=== PATIENT | male | born 1965 | race African-American/Black ===

== ENCOUNTER 2021-12-05 14:27 | Emergency (ER) | payer MEDICARE, MEDICAID ==
[~2021-12-05] VITALS: Ht 182.9 cm; Wt 102.0 kg
[~2021-12-05 14:27] MED LIST: AMLO10TA80 PO; CIPR500T5 PO; DICL75TA5 PO; GABA-532 PO; HYDR-523 PO
[2021-12-05] MEDS ORDERED: IBUPROFEN 600MG TABLET PO ONE (15:00)
[2021-12-05] MEDS ORDERED: HYDROCODONE/ACETAMINOPHEN 5/325MG TABLET PO ONE (15:00)
[2021-12-05] MEDS ORDERED: CYCL10TA7 MT (16:07)
[2021-12-05] MEDS ORDERED: IBUP-2029 MT (16:07)
[2021-12-05 17:47] VITALS: BP 142/72
== END 2021-12-05 17:50 | disposition home or self-care (01) ==
LOC: ER 14:40
DX: S09.8XXA Other specified injuries of head, initial encounter (principal); S13.9XXA Sprain of joints and ligaments of unspecified parts of neck, initial encounter; I10 Essential (primary) hypertension; Z98.890 Other specified postprocedural states; Z88.0 Allergy status to penicillin; Z88.2 Allergy status to sulfonamides; W17.89XA Other fall from one level to another, initial encounter; Y93.B1 Activity, exercise machines primarily for muscle strengthening; Y92.018 Other place in single-family (private) house as the place of occurrence of the external cause
CPT/HCPCS: 99284

== ENCOUNTER 2023-08-13 11:39 | Emergency (ER) | payer MEDICAID, MEDICARE ==
[~2023-08-13] VITALS: Ht 177.8 cm; Wt 94.0 kg
[~2023-08-13 11:39] MED LIST changes: +CYCL10TA21 MT; +IBUP-2029 MT
[2023-08-13 11:46] VITALS: BP 107/76; PULSE 109; TEMP 98.7; O2SAT 99
[2023-08-13] MEDS ORDERED: LIDOCAINE HCL/PF 1% 10 MG/ML 5ML VIAL INFIL ONE (13:15)
[2023-08-13] MEDS ORDERED: BACITRACIN ZINC OINT UDPKT TOP ONE (13:15)
[2023-08-13] MEDS ORDERED: TETANUS, DIPHTHERIA, PERTUSSIS VAC/PF 0.5ML (>10YR OLD) IM ONE ×2 (13:15→15:00)
[2023-08-13] MEDS ORDERED: BACITRACIN ZINC OINT UDPKT TOP NR (14:55)
[2023-08-13] MEDS ORDERED: LIDOCAINE HCL/PF 1% 10 MG/ML 5ML VIAL INFIL NR (14:56)
== END 2023-08-13 16:54 | disposition home or self-care (01) ==
LOC: ER 11:39
DX: S61.411A Laceration without foreign body of right hand, initial encounter (principal); I10 Essential (primary) hypertension; Z88.0 Allergy status to penicillin; Z88.2 Allergy status to sulfonamides; Z98.890 Other specified postprocedural states; W01.0XXA Fall on same level from slipping, tripping and stumbling without subsequent striking against object, initial encounter; Y93.89 Activity, other specified; Y92.89 Other specified places as the place of occurrence of the external cause; Y99.8 Other external cause status
CPT/HCPCS: 99283; 90715; 12004; 90471; J3490